=== PATIENT | female | born 1955 | race Caucasian/White ===

== ENCOUNTER 2018-08-19 16:51 | Observation (INO) ==
[2018-08-19] MEDS ORDERED: Aspirin 81 MG TAB.CHEW PO ONE (17:07)
[2018-08-19 17:28] LABS: Basophils % 0.4 %; Eosinophils # 0.5 K/mcL (0.0-0.6); Eosinophils % 6.4 %; Hematocrit 40.5 % (35.3-44.9); Hemoglobin 13.4 g/dL (11.5-15.4); Immature Granulocytes % 0.4 % (0-4); Lymphocytes # 2.7 K/mcL (0.6-4.6); Lymphocytes % 31.8 %; Mean Corpuscular HGB Conc 33.1 g/dL (31.6-35.5); Mean Corpuscular Hemoglobin 27.9 pg (28.0-33.3); Mean Corpuscular Volume 84.2 fL (83.0-100.0); Mean Platelet Volume 10.7 fL (9.4-12.4); Monocytes # 0.6 K/mcL (0.0-1.3); Neutrophils # 4.6 K/mcL (1.6-8.9); Platelet Count 227 K/mcL (140-400); Red Blood Count 4.81 M/mcL (3.82-4.97); Red Cell Distribution Width 14.3 % (11.5-14.5)
[2018-08-19 17:35] LABS: Prothrombin Time 11.2 Seconds (9.4-12.1)
[2018-08-19] MEDS: Nitroglycerin 0.4 MG TAB.SUBL SL PRN ×2 (17:42→17:48)
[2018-08-19 17:45] LABS: BUN/Creatinine Ratio 11 (6-26); Blood Urea Nitrogen 9 mg/dL (8-23); Calcium 9.3 mg/dL (8.6-10.3); Carbon Dioxide 27 mEq/L (23-29); Chloride 103 mEq/L (98-107); Glucose 124 mg/dL (70-105); Osmolality,Calculated 282 (280-300); Potassium 3.7 mEq/L (3.5-5.1); Sodium 136 mEq/L (136-145); Troponin I < 0.03 ng/mL (< 0.04); eGFR For Non-African Americans > 60 (> 60)
[2018-08-19] MEDS ORDERED: *HR* Morphine 2 MG/ML SYRINGE IVP ONE (19:16)
--- NOTE | 2018-08-19 19:38 | Emergency Department Note ---
Disposition Clinical Impression: Chest pain Disposition: Admitted As Inpatient Condition: Fair Referrals: NONE,PCP [Primary Care Provider] - Time of Disposition: 19:32 Chest Pain HPI - General Stated Complaint: L arm pain, hand numbness, headache, dizzy Time Seen by Provider: 08/19/18 17:08 Source: patient, family Mode of arrival: ambulatory Limitations: no limitations Vital Signs Reviewed: Yes Nursing Notes Reviewed: Yes - History of Present Illness HPI Narrative: 62-year-old female presents today with chest pain. She states she is pains in her neck that shoot down her left arm and then has pain in her chest that shoots across her chest. She states it comes and goes. It makes her dizzy and nauseated. She is thrown up with it. She does not get sweaty with it. She states she has had a heart attack before but states it did not feel like this. She states she no she has 2 small blockages in her heart and was placed on cholesterol medicine for them 2 years ago but they have not been any intervention for them. She called her asset administrator today because she is continuing to have pain and he sent her in for evaluation. Pt complaint: chest pain - Related Data Home Medications Medication Instructions Recorded Confirmed Albuterol Neb [AccuNeb] 1.25 mg IH Q6H PRN 11/17/17 03/19/18 Albuterol Sulfate [Albuterol 2 puff IH Q4H PRN 11/17/17 08/19/18 Inhaler] EPINEPHrine [Epipen] 0.3 mg IM ONCE PRN 11/17/17 08/19/18 Metoprolol XL (24 HR) Succ [Toprol 12.5 mg PO DAILY 11/17/17 08/19/18 XL] Omeprazole [PriLOSEC] 40 mg PO DAILY 11/17/17 08/19/18 Pravastatin Sodium [Pravachol] 80 mg PO HS 11/17/17 08/19/18 Fexofenadine HCl 60 mg PO BID 03/19/18 08/19/18 Ibuprofen [Motrin] 800 mg PO Q8H PRN 03/19/18 08/19/18 Systane 0.3-0.4% Eye Drops 1 drop BOTH EYES DAILY 03/19/18 08/19/18 Tiotropium [Spiriva] 18 mcg IH 0700 03/19/18 08/19/18 Allergies Allergy/AdvReac Type Severity Reaction Status Date / Time clindamycin Allergy Difficulty Verified 08/19/18 17:06 Breathing fluticasone [From Flonase] Allergy Difficulty Verified 08/19/18 17:06 Breathing hydrocodone Allergy Hives Verified 08/19/18 17:06 Influenza Virus Vaccines Allergy Swelling Verified 08/19/18 17:06 Penicillins Allergy Difficulty Verified 08/19/18 17:06 Breathing venom-honey bee Allergy Difficulty Verified 08/19/18 17:06 [bee venom (honey bee)] Breathing Androgenic Anabolic Steroid AdvReac Swelling Verified 08/19/18 17:06 of Lip/Tongue/Throat Review of Systems: All other systems are negative except as noted/marked Chart generated with voice recognition software Nursing notes reviewed Old records reviewed Chest Pain PMH - Past Medical History Medical history: Reports: non-contributory Psychiatric history: Reports: no psych history - Social History Smoking Status: Never smoker Alcohol use: Reports: none Drug use: Reports: none Physical Exam General: NAD, VSS Head: normocephalic, atraumatic Eyes: EOMI, PERRLA mouth: moist mucous membranes Neck: NO CLA, Supple no bruits Chest wall: normal rise, no crepitus, no deformity noted Lungs: moving air well, no distress Heart: RRR Abd: soft, nontender, BS normal : deferred MSK: strength equal in all four extremities Ext: moves all four extremities, no obvious deformities Skin: cap refill normal, warm, dry neuro : CN2-12 grossly intact, A&Ox3 Psych: anxious Course Vital Signs Temperature 98.7 F 08/19/18 17:07 Pulse Rate 73 08/19/18 17:07 Respiratory Rate 16 08/19/18 17:07 Blood Pressure 150/76 08/19/18 17:07 O2 Sat by Pulse Oximetry 99 08/19/18 17:07 Temperature 98.7 F 08/19/18 17:07 Pulse Rate 68 08/19/18 19:28 Respiratory Rate 18 08/19/18 19:28 Blood Pressure 150/73 08/19/18 19:28 O2 Sat by Pulse Oximetry 96 08/19/18 19:28 Oxygen Delivery Oxygen Delivery Nasal Cannula Chest Pain - [facility] Narrative Medical decision making narrative: 62-year-old female who presents today with intermittent neck pain and chest pain that radiates into her chest and down her left arm And on for Couple of Days. She States Is Not Getting Better and She Gets Lightheaded Nauseated with It It Made Her Throw up Once. 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 She states she is on high blood pressure medicine and high cholesterol medicine today she states that it is just not getting any better and so she comes in. She has had no response to 2 sublingual nitroglycerin so he stopped using those is are not helping. We did give her an aspirin. Her initial EKG was unremarkable. She will vitals have been stable on the monitor. Her troponin 1 was negative in the department. In discussing it with her do think she is to go up to main campus and have a cardiac evaluation and rule out. Patient's agreeable to this. Bed management was consult at at 1820 1920 hospitalist from [facility] calls back. Discusses the case with me states that he feels that the patient can probably be ruled out here as she has had a stress test done in the last year. Patient was unaware that that how recently that have been done. I spoke with Dr. Garcia who agreed to accept the patient. Orders have been placed. - Medical Records Medical records reviewed: Yes I reviewed the patient's medical records. - Lab Data Lab results reviewed: Yes I reviewed the patient's lab results. Result diagrams: 08/19/18 17:22 08/19/18 17:22 Lab Results 08/19/18 08/19/18 08/19/18 Range/Units 17:22 17:22 17:22 WBC 8.4 (4.3-11.1) K/mcL RBC 4.81 (3.82-4.97) M/mcL Hgb 13.4 (11.5-15.4) g/dL Hct 40.5 (35.3-44.9) % MCV 84.2 (83.0-100.0) fL MCH 27.9 L (28.0-33.3) pg MCHC 33.1 (31.6-35.5) g/dL RDW 14.3 (11.5-14.5) % Plt Count 227 (140-400) K/mcL MPV 10.7 (9.4-12.4) fL Immature Gran % 0.4 (0-4) % Seg Neutrophils % 54.0 % Lymphocytes % 31.8 % Monocytes % 7.0 % Eosinophils % 6.4 % Basophils % 0.4 % Neutrophils # 4.6 (1.6-8.9) K/mcL Lymphocytes # 2.7 (0.6-4.6) K/mcL Monocytes # 0.6 (0.0-1.3) K/mcL Eosinophils # 0.5 (0.0-0.6) K/mcL Basophils # 0.0 (0.0-0.2) K/mcL PT 11.2 (9.4-12.1) Seconds INR 1.0 APTT 31.0 (26.0-36.0) Seconds Sodium (136-145) mEq/L Potassium (3.5-5.1) mEq/L Chloride (98-107) mEq/L Carbon Dioxide (23-29) mEq/L BUN (8-23) mg/dL Creatinine (0.60-1.20) mg/dL Est GFR ( Amer) (> 60) Est GFR (Non-Af Amer) (> 60) BUN/Creatinine Ratio (6-26) Glucose (70-105) mg/dL Calculated Osmolality (280-300) Calcium (8.6-10.3) mg/dL Troponin I (< 0.04) ng/mL B-Natriuretic Peptide 34 (Less than 100) pg/mL 08/19/18 Range/Units 17:22 WBC (4.3-11.1) K/mcL RBC (3.82-4.97) M/mcL Hgb (11.5-15.4) g/dL Hct (35.3-44.9) % MCV (83.0-100.0) fL MCH (28.0-33.3) pg MCHC (31.6-35.5) g/dL RDW (11.5-14.5) % Plt Count (140-400) K/mcL MPV (9.4-12.4) fL Immature Gran % (0-4) % Seg Neutrophils % % Lymphocytes % % Monocytes % % Eosinophils % % Basophils % % Neutrophils # (1.6-8.9) K/mcL Lymphocytes # (0.6-4.6) K/mcL Monocytes # (0.0-1.3) K/mcL Eosinophils # (0.0-0.6) K/mcL Basophils # (0.0-0.2) K/mcL PT (9.4-12.1) Seconds INR APTT (26.0-36.0) Seconds Sodium 136 (136-145) mEq/L Potassium 3.7 (3.5-5.1) mEq/L Chloride 103 (98-107) mEq/L Carbon Dioxide 27 (23-29) mEq/L BUN 9 (8-23) mg/dL Creatinine 0.84 (0.60-1.20) mg/dL Est GFR ( Amer) > 60 (> 60) Est GFR (Non-Af Amer) > 60 (> 60) BUN/Creatinine Ratio 11 (6-26) Glucose 124 H (70-105) mg/dL Calculated Osmolality 282 (280-300) Calcium 9.3 (8.6-10.3) mg/dL Troponin I < 0.03 (< 0.04) ng/mL B-Natriuretic Peptide (Less than 100) pg/mL - Radiology Data Radiology results reviewed: Yes I reviewed the patient's radiology results. - EKG Data EKG attestation: Yes I reviewed and interpreted this EKG. EKG results narrative: EKG interpreted by myself as a sinus rhythm with a rate of [address] elevation I do not a prior EKG for comparison at this time Heart Score - Score History: Highly Suspicious EKG: Normal Age: 45-65 Risk Factors: Equal/Greater than 3 risk factor or history of atherosclerotic disease Troponin: Less than normal limit HEART Score Total: 5
[2018-08-19] MEDS ORDERED: Naloxone 0.4 MG/ML INJ IVP PRN (20:06)
[2018-08-19] MEDS ORDERED: Ibuprofen 800 MG TABLET PO PRN (20:06)
[2018-08-19] MEDS ORDERED: Nitroglycerin 0.4 MG TAB.SUBL SL PRN (20:06)
[2018-08-19] MEDS: Loratadine 10 MG TABLET PO SCH (22:16)
[2018-08-19] MEDS ORDERED: Acetaminophen 325 MG TABLET PO PRN (22:21)
[2018-08-19] MEDS ORDERED: Metoprolol XL (24 HR) Succ 25 MG TAB.ER.24H PO SCH (23:00)
[2018-08-20 05:50] LABS: Basophils # 0.1 K/mcL (0.0-0.2); Basophils % 0.5 %; Eosinophils # 0.7 K/mcL (0.0-0.6); Eosinophils % 7.3 %; Hematocrit 40.6 % (35.3-44.9); Hemoglobin 13.2 g/dL (11.5-15.4); Immature Granulocytes % 0.2 % (0-4); Lymphocytes # 3.3 K/mcL (0.6-4.6); Lymphocytes % 36.1 %; Mean Corpuscular HGB Conc 32.5 g/dL (31.6-35.5); Mean Corpuscular Hemoglobin 27.6 pg (28.0-33.3); Mean Corpuscular Volume 84.8 fL (83.0-100.0); Mean Platelet Volume 10.6 fL (9.4-12.4); Monocytes # 0.6 K/mcL (0.0-1.3); Monocytes % 6.6 %; Neutrophils # 4.5 K/mcL (1.6-8.9); Platelet Count 232 K/mcL (140-400); Red Blood Count 4.79 M/mcL (3.82-4.97); Red Cell Distribution Width 14.3 % (11.5-14.5); Segmented Neutrophils % 49.3 %
[2018-08-20 06:10] LABS: BUN/Creatinine Ratio 14 (6-26); Blood Urea Nitrogen 11 mg/dL (8-23); Calcium 9.3 mg/dL (8.6-10.3); Carbon Dioxide 24 mEq/L (23-29); Chloride 103 mEq/L (98-107); Glucose 134 mg/dL (70-105); Osmolality,Calculated 287 (280-300); Potassium 3.9 mEq/L (3.5-5.1); Sodium 138 mEq/L (136-145); eGFR For Non-African Americans > 60 (> 60)
[2018-08-20] MEDS ORDERED: Tiotropium 18 MCG inhalation IH SCH (07:00)
[2018-08-20 07:17] VITALS: BP 126/66
[2018-08-20] MEDS ORDERED: Artificial Tears SOLN 15 ML BOTTLE BOTH EYES SCH (09:00)
[2018-08-20] MEDS: Loratadine 10 MG TABLET PO SCH (09:26)
--- NOTE | 2018-08-20 10:00 | Internal Med History&Physical ---
Date of Encounter: 08/20/18 Time of Encounter: 09:57 Assessment and Plan (1) HTN (hypertension) Current visit: No Status: Chronic Blood pressure is s table continue present meds as before no new change Qualifiers: Hypertension type: essential hypertension Qualified Code(s): I10 - Essential (primary) hypertension (2) Chest pain Current visit: Yes Status: Acute pt has hx of CAD per pt she was told that she may have had a blockage . Reviewed of last Stress test was negative Her hx and examination are not consistent with angina or Cardiac pain EKG during pain negative for any acute changes Troponin 3 sets negative Pain is also reproducible . Reassured her she can be discharge NTG givne to her as PRN followup with her water quality analyst for further workup as she requires. Risk si HTN . clinically stable Qualifiers: Chest pain type: unspecified Qualified Code(s): R07.9 - Chest pain, unspecified Internal Medicine - H&P: HPI Admitted From: Emergency Dept History of present illness: Ms. Carbajal is a 62 year old female admitted to r/o VT she started having pain in her left arm and neck and chest on and off radiating to her left arm no associated symptoms she coud identify which would cause this pain . No associated SOB sweating . She does have hx of Dizziness when she walks little more then usual Pain was not relieved with rest although use of NTG did help her . No fever or chill no cough no weakness in arms or legs no urinary symptoms or any other complains. Past Med Surg Social Fam HX - Past Medical History Medical history: non-contributory, asthma, COPD, hyperlipidemia, hypertension Psychiatric history: no psych history - Past Surgical History Surgical History: hysterectomy Additional surgical history: left knee - Social History Smoking Status: Never smoker Smokeless Tobacco Status: No Alcohol use: none Drug use: none - Family History Father Living Status: Hx Family Cancer: Yes Internal Medicine - H&P: Meds Albuterol Neb [AccuNeb] 1.25 mg IH Q6H PRN 11/17/17 [History] Albuterol Sulfate [Albuterol Inhaler] 2 puff IH Q4H PRN 11/17/17 [History] EPINEPHrine [Epipen] 0.3 mg IM ONCE PRN 11/17/17 [History] Metoprolol XL (24 HR) Succ [Toprol XL] 12.5 mg PO DAILY 11/17/17 [History] Omeprazole [PriLOSEC] 40 mg PO DAILY 11/17/17 [History] Pravastatin Sodium [Pravachol] 80 mg PO HS 11/17/17 [History] Fexofenadine HCl 60 mg PO BID 03/19/18 [History] Systane 0.3-0.4% Eye Drops 1 drop BOTH EYES DAILY 03/19/18 [History] Tiotropium [Spiriva] 18 mcg IH 0700 03/19/18 [History] Allergy/AdvReac Type Severity Reaction Status Date / Time clindamycin Allergy Difficulty Verified 08/19/18 17:06 Breathing fluticasone [From Flonase] Allergy Difficulty Verified 08/19/18 17:06 Breathing green pepper Allergy Swelling Verified 08/20/18 07:29 of Lip/Tongue/Throat honey Allergy Swelling Verified 08/20/18 07:28 of Lip/Tongue/Throat hydrocodone Allergy Hives Verified 08/19/18 17:06 Influenza Virus Vaccines Allergy Swelling Verified 08/19/18 17:06 Penicillins Allergy Difficulty Verified 08/19/18 17:06 Breathing venom-honey bee Allergy Difficulty Verified 08/19/18 17:06 [bee venom (honey bee)] Breathing Androgenic Anabolic Steroid AdvReac Swelling Verified 08/19/18 17:06 of Lip/Tongue/Throat All Systems PM: A 10-system review of systems was performed and is negative for pertinent findings except as documented above in the HPI. - EENT Eyes: no blurry vision, no diplopia, no discharge, no loss of peripheral vision, no photophobia, no spots in vision Nose, mouth and throat: no change in voice, no dysphagia, no nasal discharge, no sinus pain, no sinus pressure, no sore throat - Cardiovascular Cardiovascular ROS IM: chest pain, dyspnea on exertion, lightheadedness, no claudication, no diaphoresis, no dyspnea, no edema, no irregular heart rhythm, no orthopnea, no palpitations, no paroxysmal nocturnal dyspnea, no syncope Additional comments: pain left side of chest and arm along with her neck - Respiratory Respiratory: no cough, no dyspnea, no hemoptysis, no dyspnea on exertion, no wheezing, no pain on inspiration, no excessive phlegm production, no change in p hlegm color, no pain with cough - Gastrointestinal Gastrointestinal: no belching, no bloating, no coffee ground emesis, no heartburn, no hematemesis, no hematochezia, no loose stools - Genitourinary Genitourinary: urinary hesitancy, urinary incontinence, no urinary urgency, no vaginal discharge - Musculoskeletal Musculoskeletal ROS IM: no joint swelling, no limited range of motion, no muscle cramps, no muscle weakness, no myalgias - Constitutional Vitals: Temp Pulse Resp BP Pulse Ox 97.7 F 57 16 126/66 98 08/20/18 07:17 08/20/18 07:17 08/20/18 07:17 08/20/18 07:17 08/20/18 07:17 General appearance: Present: A&O X 3, pleasant, no acute distress - Head Head exam: Present: atraumatic - Eye Eye exam: Present: EOMI, PERRL. Absent: scleral icterus Pupils: Present: PERRL - Neck Neck exam general surgery: Present: normal inspection, supple. Absent: tenderness, nuchal rigidity Additional comments: local tenderness on neck some muscular spam as well pain is similar to what brought her to the hospital which she thinks that is radiating to her arm - Respiratory Respiratory exam: Present: chest wall tenderness, CTAB. Absent: respiratory distress, rhonchi, stridor, wheezes, tachypnea Additional comments: reproducble chest pain on left side she states that this is the same pain which brought her to the ED - Cardiovascular Cardiovascular exam: Present: bradycardia, RRR, +S1, +S2. Absent: irregular rhythm, JVD Additional comments: local chest pain similar to what brought her to ED similar pain noted on her arm and hand left side - GI/Abdominal GI/Abdominal exam: Present: normal bowel sounds, soft. Absent: distended, guarding, pulsatile mass, rigid - Extremities Exam Extremities exam: Present: full ROM, tenderness, radial pulses palpable and symmetrical. Absent: pedal edema, warm Additional comments: tendernesss on the left hand and arm no trauma noted - Neurological Exam Neurological exam: Present: alert, CN II-XII intact, oriented X3, no focal deficits, strengths equal and symetr throughout. Absent: pronater drift, facial droop, speech deficit Internal Med - H&P Results - Labs CBC & Chem 7: 08/20/18 05:45 08/20/18 05:45 Labs: Short CBC 10/26/18 10/27/18 Range/Units 17:22 05:45 WBC 8.4 9.1 (4.3-11.1) K/mcL Hgb 13.4 13.2 (11.5-15.4) g/dL Hct 40.5 40.6 (35.3-44.9) % Plt Count 227 232 (140-400) K/mcL Neutrophils # 4.6 4.5 (1.6-8.9) K/mcL BMP 08/19/18 08/20/18 17:22 05:45 Sodium 136 138 Potassium 3.7 3.9 Chloride 103 103 Carbon Dioxide 27 24 BUN 9 11 Creatinine 0.84 0.81 Glucose 124 H 134 H Calcium 9.3 9.3 Cardiac Enzymes 08/19/18 08/19/18 08/20/18 Range/Units 17:22 20:45 02:25 Troponin I < 0.03 < 0.03 < 0.03 (< 0.04) ng/mL - Impressions ITS Impressions Chest X-Ray 08/19/18 17:07 IMPRESSION: No significant findings in the chest. D/ / Scar Jeffrey MD / Scar Jeffrey MD Interpreting Provider: Scar Jeffrey MD
--- NOTE | 2018-08-20 10:14 | Discharge Summary ---
Orders not resulted at time of discharge: Pending orders 08/20/18 06:00 ECG 12 lead ECG [ECG] AM 0600 sinus Franky no acute change s Date of Encounter: 08/20/18 Time of Encounter: 10:12 - Discharge Diagnosis (1) HTN (hypertension) Priority: Secondary Status: Chronic Comments: stable continue present meds Qualifiers: Hypertension type: essential hypertension Qualified Code(s): I10 - Essential (primary) hypertension (2) Chest pain Priority: Primary Status: Acute Comments: ND ruled out last stress test negative , Chest pain muscular in nature as reproducible Qualifiers: Chest pain type: intercostal pain Qualified Code(s): R07.82 - Intercostal pain Hospital course: Ms. Carbajal is a 62 year old female had unremarkable course she was observed on tele . During her stay she did complains of similar pain which brought her to the ED Her EKG was negative for any Acute changes 3 sets troponin negative Pain is reproducible All other vitals stable . she is bradycardiac due to beta blockers - Time Spent with Patient Total time spent providing and/or coordinating discharge services: - Discharge Medications Home Medications: Albuterol Neb [AccuNeb] 1.25 mg IH Q6H PRN 11/17/17 [History] Albuterol Sulfate [Albuterol Inhaler] 2 puff IH Q4H PRN 11/17/17 [History] EPINEPHrine [Epipen] 0.3 mg IM ONCE PRN 11/17/17 [History] Metoprolol XL (24 HR) Succ [Toprol XL] 12.5 mg PO DAILY 11/17/17 [History] Omeprazole [PriLOSEC] 40 mg PO DAILY 11/17/17 [History] Pravastatin Sodium [Pravachol] 80 mg PO HS 11/17/17 [History] Fexofenadine HCl 60 mg PO BID 03/19/18 [History] Systane 0.3-0.4% Eye Drops 1 drop BOTH EYES DAILY 03/19/18 [History] Tiotropium [Spiriva] 18 mcg IH 0700 03/19/18 [History] Allergies/Adverse Reactions: Allergy/AdvReac Type Severity Reaction Status Date / Time clindamycin Allergy Difficulty Verified 08/19/18 17:06 Breathing fluticasone [From Flonase] Allergy Difficulty Verified 08/19/18 17:06 Breathing green pepper Allergy Swelling Verified 08/20/18 07:29 of Lip/Tongue/Throat honey Allergy Swelling Verified 08/20/18 07:28 of Lip/Tongue/Throat hydrocodone Allergy Hives Verified 08/19/18 17:06 Influenza Virus Vaccines Allergy Swelling Verified 08/19/18 17:06 Penicillins Allergy Difficulty Verified 08/19/18 17:06 Breathing venom-honey bee Allergy Difficulty Verified 08/19/18 17:06 [bee venom (honey bee)] Breathing Androgenic Anabolic Steroid AdvReac Swelling Verified 08/19/18 17:06 of Lip/Tongue/Throat Date of admission: 08/19/18 19:38 Primary care physician: PCP NONE Discharging clinician: Robyn Garcia Anticipated date of discharge: 08/20/18 - Constitutional Vitals: Temp Pulse Resp BP Pulse Ox 97.7 F 57 16 126/66 98 08/20/18 07:17 08/20/18 07:17 08/20/18 07:17 08/20/18 07:17 08/20/18 07:17 General appearance: Present: A&O X 3, pleasant, no acute distress - Head Head exam: Present: atraumatic - Eye Eye exam: Present: EOMI, PERRL Pupils: Present: PERRL - Neck Neck exam general surgery: Present: full ROM, tenderness, supple. Absent: nuchal rigidity Additional comments: locla neck pain on left side - Respiratory Respiratory exam: Present: chest wall tenderness, CTAB. Absent: respiratory distress, rhonchi, stridor, wheezes, tachypnea Additional comments: left chest local pain - Cardiovascular Cardiovascular exam: Present: RRR, +S1, +S2. Absent: irregular rhythm, JVD - GI/Abdominal GI/Abdominal exam: Present: normal bowel sounds, soft. Absent: distended, guarding, rebound, rigid - Extremities Exam Extremities exam: Present: full ROM. Absent: pedal edema, tenderness - Neurological Exam Neurological exam: Present: alert, CN II-XII intact, oriented X3, no focal deficits, strengths equal and symetr throughout. Absent: pronater drift, facial droop, speech deficit - Patient Status Disposition: Home, Self-Care Condition: Good Overall status at discharge: patient is back to baseline - Discharge Instructions Follow Up With: NONE,PCP [Primary Care Provider] - Forms: ED Satisfaction Letter Additional Instructions: followup with project/production manager imaging as planned On Wednesday . - Diet and Activity Activity: other
--- NOTE | 2018-08-26 09:49 | Electrocardiograph Report ---
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
--- NOTE | 2018-08-26 10:05 | Electrocardiograph Report ---
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
== END 2018-08-20 10:50 | disposition home or self-care (01) ==
LOC: EMEROOGRE 16:51 → INPGRE 16:51
PROVIDERS: ADMIT Internal Medicine; ATTEND Internal Medicine